=== PATIENT | female | born 1950 | race Caucasian/White ===

== ENCOUNTER 2023-02-25 18:51 | Inpatient (IN) ==
[2023-02-25] MEDS ORDERED: ACETAMINOPHEN 500 MG TAB PO STA (19:14)
[2023-02-25] MEDS ORDERED: SODIUM CHLORIDE 0.9% 500 ML IV SCH (19:15)
[2023-02-25 19:42] LABS: Basophils # (auto) 0.05 K/uL (0-0.2); Basophils % (auto) 0.8 %; Eosinophils # (auto) 0.14 K/uL (0-0.50); Eosinophils % (auto) 2.3 %; Hematocrit (blood only) 37.1 % (37.0-47.0); Hemoglobin 12.3 g/dl (12.0-16.0); Immature Granulocytes # (auto) 0.01 K/uL (0.01-0.20); Immature Granulocytes % (auto) 0.2 %; Lymphocytes # (auto) 2.15 K/uL (1.2-3.4); Lymphocytes % (auto) 35.1 %; Mean Corpuscular Hemoglobin 32.9 pg (25.0-34.0); Mean Corpuscular Hgb Conc 33.2 g/dL (32.0-36.0); Mean Corpuscular Volume 99.2 fL (80.0-100.0); Mean Platelet Volume 10.1 fL (9.4-12.4); Monocytes # (auto) 0.43 K/uL (0.11-0.59); Neutrophils # (auto) 3.34 K/uL (1.40-6.50); Neutrophils % (auto) 54.6 %; Platelet Count 223 K/uL (130-400); RDW Standard Deviation 47.6 fL (36.4-46.3); Red Blood Count 3.74 M/uL (4.20-5.40); White Blood Count 6.12 K/ul (4.8-10.8)
[2023-02-25 20:02] LABS: Alanine Aminotransferase 12 U/L (7-52); Albumin Globulin Ratio 1.3 (0.9-2); Alkaline Phosphatase 79 U/L (34-104); Anion Gap 6 (3-11); BUN Creatinine Ratio 21.8 (10-20); Bilirubin,Total 0.4 mg/dl (0.2-1.0); Blood Urea Nitrogen 19 mg/dl (6-23); Calcium 9.3 mg/dl (8.6-10.3); Carbon Dioxide 27 mmol/L (21-32); Chloride 106 mmol/L (98-107); Creatine Kinase 72 U/L (26-192); Creatinine Clr Calc Pharmacy 62.1 ml/min; Est GFR (African American) 77.7 ml/min; Glucose 92 mg/dl (70-99(Fasting)); Sodium 139 mmol/L (136-145)
[2023-02-25 20:08] LABS: Troponin I High Sensitivity 2.6 pg/ml (0-14)
--- NOTE | 2023-02-25 20:23 | Emergency Department Note ---
Impression & Plan Generalized weakness, Mild dehydration, Fall ED Provider Note INFORMANT: Patient ED PROVIDER(S): Perfecto Serna MD CHIEF COMPLAINT: Fall PLAN: Disposition: Admitted Condition: Good Outpatient prescription management: none Referral: None MEDICAL DECISION MAKING: patient presented because of weakness. She had a minor fall but did not suffer any trauma. Patient underwent a work-up. Her CBC and chemistry panel unremarkable. Mild dehydration on chemistry panel. Her troponin and CK were normal. The patient's chest x-ray was negative. CT scan of the head was negative. Twelve-lead ECG did have a lateral Q waves which was new however the last ECG was 13 years old. Patient did provide a urine sample and this was concerning for infection. Nursing did try to ambulate the patient but she was too weak to ambulate. She was given a dose of IV Rocephin. The patient was informed of the findings. She did note a recent visit to the [facility] and was told about a UTI. She was started on a antibiotic but does not know the medication. Given the level of weakness and inability to ambulate further management in the hospital be necessary. Consultation was made with Dr. Scott, [place] [facility] service. Patient was evaluated in the ER and admitted for further management. Discussed with chronic manager After review of the information above and other included data, I feel the patient requires admission. Triage Nursing notes reviewed and agree them. Vital Signs: reviewed and remarkable for no significant abnormalities Prior /Outside records reviewed: none Differential diagnosis: Infection, dehydration, metabolic abnormality, hypo/hyperglycemia, electrolyte disturbance, anemia, hypoxia, cardiac sources, intracerebral event, toxicologic, neurologic, as well as other pathologies. Diagnostics, as interpreted by me: ECG: Twelve-lead ECG was normal sinus rhythm at 69 bpm. Lateral Q waves present. Nonspecific ST. When compared to 12 April 2011 the lateral Q waves are new. Cardiac Monitoring: Cardiac monitoring ordered by me: The patient was placed on continuous cardiac monitoring and observed. It revealed a normal sinus rhythm at 66 beats per minute without ectopy or evidence of dysrhythmia. Medical decision rules: none Imaging studies: Head CT: A noncontrast CT scan of the head was performed and was negative for tumor, fracture, intracranial hemorrhage, or other acute pa thology. Chest x-ray. Findings: A chest x-ray was performed and revealed no pneumothorax, effusion, infiltrate, pulmonary edema, free air under the diaphragm, or wide mediastinum. Impression: No acute disease. HPI: The patient is a 72year old female who presents to the Emergency Room with complaints of a fall. This started just prior to arrival and is described as her legs giving out. Patient was standing in her kitchen and she felt generalized weakness. She had some pins and needle sensation in her hands and feet this been going on for about a week. Patient notes that her legs gave out and she slid down but does not feel like she hurt herself. EMS arrived and patient was able to ambulate with EMS at her side about 20 feet. The patient also notes the following associated symptoms, chronic knee and back pain. Patient has a history of back surgery. Denies any new symptoms there. Does not feel she hurt her back from this event. The patient has been given no medication prehospital relieving factors. Current pain is rated as 4/10. Pt denies LOC, headache, fevers, chills, diaphoresis, visual changes, neck pain, chest pain, breathing difficulties, nausea, vomiting, abdominal pain, melena, hematochezia, urinary symptoms, lymphadenopathy, rash, or other complaints. PAST MEDICAL HISTORY: See Below, arthritis, hypertension PAST SURGICAL HISTORY: See Below, left knee replacement SOCIAL HISTORY: See Below, lives with family HOME MEDICATIONS: See Below ALLERGIES: See Below VITALS: See Below PHYSICAL EXAMINATION: GENERAL: Awake, alert, nontoxic-appearing, in no distress HENT: Normocephalic, atraumatic. Oropharynx unremarkable. EYES: Normal conjunctiva. Sclera non-icteric. PERRLA. EOMI. NECK: Inspection normal. Non-tender. Supple. No nuchal rigidity. FROM. No masses. RESPIRATORY: Clear to auscultation. No wheezes. No rales. Normal respiratory effort. CARDIAC: Normal rate. Normal rhythm. No murmurs. No rubs. Extremities warm and well perfused. Pulses equal. No JVD. GI: Soft, non-distended. No tenderness to palpation. No rebound or guarding. No masses. RECTAL: Deferred. MUSCULOSKELETAL: Atraumatic. Significant arthritic changes noted in the hands and feet bilaterally. Chest examination reveals no tenderness. The back is symmetrical on inspection without obvious abnormality. There is no CVA tenderness to palpation. Mild low lumbar tenderness to palpation which the patient states is chronic. No joint edema. LOWER EXTREMITIES: Calves are equal size bilaterally and non-tender. No edema. No discoloration. NEURO: Normal sensorium. No sensory or motor deficits noted except for subjective tingling in the hands and feet. Speech normal. Cranial nerves II through XII intact. No drift. SKIN: No rash or jaundice noted. Past Med/Surg History Social History Smoking Status: Never smoker Preferred Language: [place] Feels Safe at Home: Yes Allergies Allergies Allergy/AdvReac Type Severity Reaction Status Date / Time No Known Allergies Allergy Verified 02/25/23 20:12 Home Meds Home Medications Medication Instructions Recorded Confirmed aspirin 81 mg tablet,delayed 81 mg PO DAILY 02/25/23 02/25/23 release atorvastatin 20 mg tablet 20 mg PO DAILY 02/25/23 02/25/23 bupropion HCl 150 mg 24 hr tablet, 150 mg PO QAM 02/25/23 02/25/23 extended release cyanocobalamin (vitamin B-12) 1,000 mcg IM MONTHLY 02/25/23 02/25/23 1,000 mcg/mL injection solution levothyroxine 112 mcg tablet 112 mcg PO DAILYBB 02/25/23 02/25/23 lisinopril 20 mg tablet 20 mg PO QAM 02/25/23 02/25/23 multivitamin 1 tab PO DAILY 02/25/23 02/25/23 naproxen 500 mg tablet 500 mg PO BIDM 02/25/23 02/25/23 omeprazole 20 mg capsule,delayed 20 mg PO DAILYBB 02/25/23 02/25/23 release pregabalin 25 mg capsule 25 mg PO TID 02/25/23 02/25/23 sertraline 100 mg tablet 200 mg PO QAM 02/25/23 02/25/23 Results & Data (ED) Vital Signs Vital Signs - 24 hr 02/25/23 18:59 02/25/23 19:25 02/25/23 19:35 Temperature 36.5 C Temperature Source Oral Pulse Rate 76 69 66 Respiratory Rate 22 Respiratory Effort / Characteristics Non-Labored Respiratory Depth Normal Blood Pressure 147/86 H Blood Pressure Mean 106 Pulse Oximetry 98 96 Oxygen Delivery Method Room Air Room Air Sepsis Recent Fever Within 48 Hours No Sepsis New/Unexplained Change in Mental Status No Sepsis Action Taken by Nursing No Action Required Laboratory Data 02/25/23 19:27 02/25/23 19:27 Lab Results 02/25/23 02/25/23 02/25/23 Range/Units 19:27 19: 19:27 WBC 6.12 (4.8-10.8) K/ul RBC 3.74 L (4.20-5.40) M/uL Hgb 12.3 (12.0-16.0) g/dl Hct 37.1 (37.0-47.0) % MCV 99.2 (80.0-100.0) fL MCH 32.9 (25.0-34.0) pg MCHC 33.2 (32.0-36.0) g/dL RDW Std Deviation 47.6 H (36.4-46.3) fL RDW Coeff of Yoni 13.0 (11.5-14.5) % Plt Count 223 (130-400) K/uL MPV 10.1 (9.4-12.4) fL Immature Gran % (Auto) 0.2 % Neut % (Auto) 54.6 % Lymph % (Auto) 35.1 % [place] % (Auto) 7.0 % Eos % (Auto) 2.3 % Baso % (Auto) 0.8 % Neut # (Auto) 3.34 (1.40-6.50) K/uL Lymph # (Auto) 2.15 (1.2-3.4) K/uL [place] # (Auto) 0.43 (0.11-0.59) K/uL Eos # (Auto) 0.14 (0-0.50) K/uL Baso # (Auto) 0.05 (0-0.2) K/uL Immature Gran # (Auto) 0.01 (0.01-0.20) K/uL Sodium 139 (136-145) mmol/L Potassium TNP Chloride 106 (98-107) mmol/L Carbon Dioxide 27 (21-32) mmol/L Anion Gap 6 (3-11) BUN 19 (6-23) mg/dl Creatinine 0.87 (0.6-1.2) mg/dl Est Cr Clr Drug Dosing 62.1 ml/min Est GFR ( Amer) 77.7 ml/min Est GFR (Non-Af Amer) 67.0 ml/min BUN/Creatinine Ratio 21.8 H (10-20) Glucose 92 (70-99(Fasting)) mg/dl Calcium 9.3 (8.6-10.3) mg/dl Magnesium 2.0 (1.7-2.4) mg/dl Total Bilirubin 0.4 (0.2-1.0) mg/dl AST TNP ALT 12 (7-52) U/L Alkaline Phosphatase 79 (34-104) U/L Total Creatine Kinase 72 (26-192) U/L Troponin I High Sens 2.6 (0-14) pg/ml Total Protein 7.0 (6.0-8.3) gm/dl Albumin 4.0 (3.4-5.0) gm/dl Globulin 3.0 (2.5-4.0) gm/dl Albumin/Globulin Ratio 1.3 (0.9-2) TSH 3.108 (0.300-4.500) uIu/ml Urine Color Urine Appearance (Clear) Urine pH (4.5-7.5) Ur Specific [place] (1.000-1.030) Urine Protein (Negative) Urine Glucose (UA) (Negative) Urine Ketones (Negative) Urine Blood (Negative) Urine Nitrite (Negative) Urine Bilirubin (Negative) Urine Urobilinogen (Negative) Ur Leukocyte Esterase (Negative) Urine WBC (Auto) (0-5) /hpf Urine RBC (Auto) (0-4) /hpf U Hyaline Cast (Auto) (0-5) /lpf U Epithel Cells (Auto) (0-5) /lpf Urine Bacteria (Auto) (Negative) 02/25/23 02/25/23 Range/Units 20:07 Unknown WBC (4.8-10.8) K/ul RBC (4.20-5.40) M/uL Hgb (12.0-16.0) g/dl Hct (37.0-47.0) % MCV (80.0-100.0) fL MCH (25.0-34.0) pg MCHC (32.0-36.0) g/dL RDW Std Deviation (36.4-46.3) fL RDW Coeff of Yoni (11.5-14.5) % Plt Count (130-400) K/uL MPV (9.4-12.4) fL Immature Gran % (Auto) % Neut % (Auto) % Lymph % (Auto) % [place] % (Auto) % Eos % (Auto) % Baso % (Auto) % Neut # (Auto) (1.40-6.50) K/uL Lymph # (Auto) (1.2-3.4) K/uL [place] # (Auto) (0.11-0.59) K/uL Eos # (Auto) (0-0.50) K/uL Baso # (Auto) (0-0.2) K/uL Immature Gran # (Auto) (0.01-0.20) K/uL Sodium (136-145) mmol/L Potassium 3.9 Chloride (98-107) mmol/L Carbon Dioxide (21-32) mmol/L Anion Gap (3-11) BUN (6-23) mg/dl Creatinine (0.6-1.2) mg/dl Est Cr Clr Drug Dosing ml/min Est GFR ( Amer) ml/min Est GFR (Non-Af Amer) ml/min BUN/Creatinine Ratio (10-20) Glucose (70-99(Fasting)) mg/dl Calcium (8.6-10.3) mg/dl Magnesium (1.7-2.4) mg/dl Total Bilirubin (0.2-1.0) mg/dl AST 17 ALT (7-52) U/L Alkaline Phosphatase (34-104) U/L Total Creatine Kinase (26-192) U/L Troponin I High Sens (0-14) pg/ml Total Protein (6.0-8.3) gm/dl Albumin (3.4-5.0) gm/dl Globulin (2.5-4.0) gm/dl Albumin/Globulin Ratio (0.9-2) TSH (0.300-4.500) uIu/ml Urine Color Yellow Urine Appearance Cloudy A (Clear) Urine pH 6.0 (4.5-7.5) Ur Specific [place] 1.012 (1.000-1.030) Urine Protein Negative (Negative) Urine Glucose (UA) Negative (Negative) Urine Ketones Negative (Negative) Urine Blood 1+ H (Negative) Urine Nitrite Negative (Negative) Urine Bilirubin Negative (Negative) Urine Urobilinogen Negative (Negative) Ur Leukocyte Esterase 3+ H (Negative) Urine WBC (Auto) >30 H (0-5) /hpf Urine RBC (Auto) 0-4 (0-4) /hpf U Hyaline Cast (Auto) 1-5 (0-5) /lpf U Epithel Cells (Auto) 20-30 H (0-5) /lpf Urine Bacteria (Auto) 4+ H (Negative) Administered Medications Ceftriaxone Sodium (Rocephin) 2,000 mg in 70 mls @ 140 mls/hr IV NOW STA Stop: 02/25/23 21:49 Last Admin: 02/25/23 21:33 Dose: 140 mls/hr Documented By: NRB Discontinued Medications Acetaminophen (Acetaminophen 500 Mg Tab) 1,000 mg PO NOW STA Stop: 02/25/23 19:15 Last Admin: 02/25/23 19:42 Dose: 1,000 mg Documented By: NRB Sodium Chloride (Nss) 500 mls @ 999 mls/hr IV .Q31M GABRIEL Stop: 02/25/23 19:45 Last Infusion: 02/25/23 20:14 Dose: 0 mls/hr Documented By: Admin: 02/25/23 19:43 Dose: 999 mls/hr Documented By: NRB Imaging Data Radiologist's Impression: Head CT 02/25/23 19:14 Exam(s): CT HEAD Without Contrast EXAM: CT Head Without Intravenous Contrast CLINICAL HISTORY: Reason for exam: fall, generalized weakness. TECHNIQUE: Axial computed tomography images of the head/brain without intravenous contrast. CTDI is 37.22 mGy and DLP is 702.46 mGy-cm. Automated exposure control was utilized for the study. A dose lowering technique was utilized adhering to the principles of ALARA. COMPARISON: No relevant prior studies available. FINDINGS: No acute intracranial hemorrhage. No midline shift or mass effect. The territorial dunn-white matter differentiation is maintained throughout. Age-related cerebral volume loss. Periventricular and subcortical white matter hypoattenuation, consistent with chronic microangiopathy. The visualized orbits appear grossly unremarkable. The calvarium is intact. The visualized paranasal sinuses and mastoid air cells are grossly clear. IMPRESSION: No acute intracranial hemorrhage, midline shift, or mass effect. Electronically signed by: Jose Hogue MD 02/25/23 20:33 PM Discharge Plan Visit Data Chief Complaint: Fall Stated Complaint: "SLID" FROM STANDING, NO COMPLAINTS/PAIN, EVAL ED Provider: Perfecto Serna Discharge Problem: Generalized weakness, Mild dehydration, Fall Forms Stand Alone Forms: My [facility] Prescriptions Prescriptions: No Action multivitamin Tablet 1 tab PO DAILY atorvastatin 20 mg tablet 20 mg PO DAILY lisinopril 20 mg tablet 20 mg PO QAM sertraline 100 mg tablet 200 mg PO QAM aspirin 81 mg Tablet,Delayed Release (Dr/Ec) 81 mg PO DAILY cyanocobalamin (vitamin B-12) [Vitamin B-12] 1,000 mcg/mL Solution 1,000 mcg IM MONTHLY omeprazole 20 mg capsule,delayed release(DR/EC) 20 mg PO DAILYBB naproxen 500 mg tablet 500 mg PO BIDM levothyroxine 112 mcg tablet 112 mcg PO DAILYBB bupropion HCl 150 mg tablet extended release 24 hr 150 mg PO QAM pregabalin 25 mg capsule 25 mg PO TID Referrals Referrals: PCP,NO [Primary Care Provider] -
--- NOTE | 2023-02-25 20:34 | CT Scan Report ---
Exam(s): CT HEAD Without Contrast EXAM: CT Head Without Intravenous Contrast CLINICAL HISTORY: Reason for exam: fall, generalized weakness. TECHNIQUE: Axial computed tomography images of the head/brain without intravenous contrast. CTDI is 37.22 mGy and DLP is 702.46 mGy-cm. Automated exposure control was utilized for the study. A dose lowering technique was utilized adhering to the principles of ALARA. COMPARISON: No relevant prior studies available. FINDINGS: No acute intracranial hemorrhage. No midline shift or mass effect. The territorial dunn-white matter differentiation is maintained throughout. Age-related cerebral volume loss. Periventricular and subcortical white matter hypoattenuation, consistent with chronic microangiopathy. The visualized orbits appear grossly unremarkable. The calvarium is intact. The visualized paranasal sinuses and mastoid air cells are grossly clear. IMPRESSION: No acute intracranial hemorrhage, midline shift, or mass effect. Electronically signed by: Jose Hogue MD 02/25/23 20:33 PM
[2023-02-25 20:35] LABS: Potassium 3.9 mmol/L (3.5-5.1)
[2023-02-25 21:18] LABS: Appearance Urine Cloudy (Clear); Bacteria Urine Automated 4+ (Negative); Bilirubin Urine Negative (Negative); Blood Urine 1+ (Negative); Color Urine Yellow; Epithelial Cell Urine Auto 20-30 /lpf (0-5); Glucose Urine UA Negative (Negative); Ketones Urine Negative (Negative); Leukocyte Esterase Urine 3+ (Negative); Nitrite Urine Negative (Negative); Protein Urine Negative (Negative); RBC Urine Automated 0-4 /hpf (0-4); Specific Gravity Urine 1.012 (1.000-1.030); Urobilinogen Urine Negative (Negative); WBC Urine Automated >30 /hpf (0-5)
[2023-02-25] MEDS ORDERED: cefTRIAXone SODIUM 2,000 MG/70 ML BAG IV STA (21:20)
--- NOTE | 2023-02-25 23:45 | History and Physical Report ---
DATE OF ADMISSION: 02/25/2023. CHIEF COMPLAINT: Fall. HISTORY OF PRESENT ILLNESS: This is a 72-year-old female with past medical history significant for hypothyroidism, hyperlipidemia, hypertension, morbid obesity, GERD, vitamin B12 deficiency, generalized osteoarthritis, arthritis of right knee, osteoporosis, depression, lives at home with her granddaughter, ambulates with a walker, fell at home, she was in the kitchen. She has arthritis of the right knee, she says she is supposed to get knee surgery, but it has not been done yet, it gave way and she fell as the legs slid, did not hit the head. No loss of consciousness. She could not get up. Called EMS and was brought in here, and found to have UTI. Denies any headache, no dizziness, no blurred visions, no earache, no runny nose, no sore throat, no cough, no difficulty swallowing. No chest pain, no shortness of breath, no nausea, no vomiting, no abdominal pain. Normal bowel and bladder movements. Denies any blood in the stool or black stools. She says for the last two to three weeks, she developed some swelling in the lower extremities. Denies any tenderness of the lower extremity. ALLERGIES: No known drug allergies. PAST MEDICAL HISTORY: As mentioned above. PAST SURGICAL HISTORY: Colonoscopy, dental surgery, injection of the lumbosacral spine, lumbosacral spine fusion surgery, tonsillectomy, adenoidectomy, sacroiliac joint injection, total hysterectomy. MEDICATIONS: The patient is on aspirin 81 mg p.o. daily, atorvastatin 20 mg p.o. daily, bupropion 150 mg p.o. daily, vitamin B12 1000 mcg IM monthly, levothyroxine 112 mcg p.o. daily, lisinopril 20 mg p.o. daily, multivitamin 1 tablet p.o. daily, naproxen 500 mg p.o. b.i.d., omeprazole 20 mg p.o. daily, pregabalin 25 mg p.o. t.i.d., sertraline 200 mg p.o. a.m. FAMILY HISTORY: Significant for father had arthritis; mother has arthritis; two brothers with diabetes, obesity; sister has obesity. SOCIAL HISTORY: . Currently lives with granddaughter. No smoking, no alcohol, no drug use. REVIEW OF SYSTEMS: As per HPI. Rest of the review of systems is negative. PHYSICAL EXAMINATION: GENERAL: The patient is morbidly obese, not in acute distress. VITAL SIGNS: Temperature 36.5, pulse 73, respiratory rate 17, blood pressure 152/77, oxygen 94% on room air. HEENT: Pupils equal, round, and reactive to light. Oral mucosa moist. NECK: No JVD, no neck masses. CARDIOVASCULAR: S1 and S2 heard. Regular rate and rhythm. No murmur, no gallop. RESPIRATORY SYSTEM: Normal AP diameter. No accessory muscle use. No wheezing or crackles. ABDOMEN: Soft, bowel sounds present, nontender, no distention. CENTRAL NERVOUS SYSTEM: Alert and oriented. Speech is clear. No facial droop. Obeys commands. Insight is okay. Moves extremities. EXTREMITIES: Lower extremity edema present, no erythema seen. No calf tenderness seen. LABORATORY DATA: WBC 6.1, hemoglobin 12.3, hematocrit 37.1, platelets 223. Sodium 139, potassium 3.9, chloride 106, bicarb 27, BUN 19, creatinine 0.8, serum glucose 92, calcium 9.3, magnesium 2, total bilirubin 0.4, AST 17, ALT 12, alkaline phosphatase 79, total creatine kinase 72. Troponin I high sensitivity 2.6. TSH 3.1. Urinalysis, +2 leukocyte esterase, +4 bacteria. SARS-CoV-2 rapid test negative. IMAGING DATA: CT of the head without contrast, no acute findings. Chest x-ray, no acute findings. EKG: Normal sinus rhythm, rate of 69, nonspecific T-wave abnormalities. ASSESSMENT AND PLAN: This 72-year-old female presents with fall. 1. Fall: It looks like she has arthritis of right knee and legs gave away. Urinary tract infection could be contributing. PT, OT, monitor in the hospital. 2. Urinary tract infection: Started on Rocephin. Follow the cultures. 3. Lower extremity edema, she says for the last 2 to 3 weeks: No erythema or tenderness. Will do LE Doppler and also get echocardiogram. 4. History of hypothyroidism: Continue Synthroid. 5. History of vitamin B12 deficiency: Continue B12 shots weekly. Will check the vitamin B12 levels. 6. History of hypertension: Continue her lisinopril. 7. History of hyperlipidemia: Continue statin. 8. History of depression: Continue bupropion. 9. Gastroesophageal reflux disease: On omeprazole. 10. Morbid obesity: Counseling. 11. Deep venous thrombosis prophylaxis: Lovenox. DISPOSITION: Closely monitor in the med tele. PT/OT prior to discharge. Social service to help with discharge planning. Level 1 full code. Job ID: [id number] [facility]
[2023-02-26] MEDS ORDERED: POLYETHYLENE (MIRALAX) 17 GM PACK PO PRN (01:02)
[2023-02-26] MEDS ORDERED: NITROGLYCERIN SL 0.4 MG/TAB TAB SL PRN (01:02)
[2023-02-26] MEDS: oxyCODONE HCL IR 5 MG TAB (IMMEDIATE RELEASE) PO PRN ×3 (01:50→14:55)
[2023-02-26] MEDS: ACETAMINOPHEN 325 MG TAB PO PRN ×2 (04:55→20:14)
[2023-02-26] MEDS: LEVOTHYROXINE SODIUM 112 MCG TABLET PO SCH (05:58)
[2023-02-26] MEDS: PANTOprazole 40 MG TAB PO SCH (05:58)
[2023-02-26 06:17] LABS: Basophils # (auto) 0.04 K/uL (0-0.2); Basophils % (auto) 0.7 %; Eosinophils % (auto) 1.7 %; Hematocrit (blood only) 37.9 % (37.0-47.0); Hemoglobin 12.4 g/dl (12.0-16.0); Immature Granulocytes # (auto) 0.02 K/uL (0.01-0.20); Immature Granulocytes % (auto) 0.3 %; Lymphocytes # (auto) 1.64 K/uL (1.2-3.4); Lymphocytes % (auto) 28.6 %; Mean Corpuscular Hemoglobin 32.5 pg (25.0-34.0); Mean Corpuscular Hgb Conc 32.7 g/dL (32.0-36.0); Mean Corpuscular Volume 99.2 fL (80.0-100.0); Mean Platelet Volume 10.2 fL (9.4-12.4); Monocytes # (auto) 0.44 K/uL (0.11-0.59); Monocytes % (auto) 7.7 %; Platelet Count 219 K/uL (130-400); RDW Standard Deviation 46.1 fL (36.4-46.3); Red Blood Count 3.82 M/uL (4.20-5.40); White Blood Count 5.74 K/ul (4.8-10.8)
[2023-02-26 06:40] LABS: Calcium 9.4 mg/dl (8.6-10.3); Magnesium 1.8 mg/dl (1.7-2.4); Potassium 4.3 mmol/L (3.5-5.1)
[2023-02-26 06:46] LABS: BUN Creatinine Ratio 23.5 (10-20); Creatinine Clr Calc Pharmacy 78.3 ml/min
--- NOTE | 2023-02-26 07:26 | XRay Report ---
XR chest 1V portable HISTORY: weakness COMPARISON: None. FINDINGS: There are low lung volumes with mild elevation the right hemidiaphragm. The cardiac silhoue tte is mildly enlarged. There is a moderate hiatus hernia. The lungs are clear. No pleural effusions. No pneumothorax. No acute fractures identified. IMPRESSION: No acute process. ACT 112: Negative or not required by law. Electronically signed by: Iftikhar Mcneill M.D. 02/26/2023 7:25 AM
--- NOTE | 2023-02-26 07:26 | Ultrasound Report ---
BILATERAL LOWER EXTREMITY VENOUS DOPPLER HISTORY: lower extremity edema. dvt? COMPARISON STUDY: None. FINDINGS: There is normal compressibility, flow, and augmentation within the bilateral lower extremit y deep venous systems. There is a 4.4 x 3.3 x 1.5 cm fluid collection within the left medial calf. IMPRESSION: No DVT within the right or left lower extremity. 4.4 x 3.2 x 1.5 cm fluid collection within the left medial calf. This could represent an old hematoma. ACT 112: Negative or not required by law. Electronically signed by: Iftikhar Mcneill M.D. 02/26/2023 7:24 AM
[2023-02-26] MEDS: PREGABALIN 25 MG CAP PO SCH ×3 (08:37→20:14)
[2023-02-26] MEDS: ENOXAPARIN INJ 40 MG/0.4 ML SYR SQ SCH ×2 (08:41→20:14)
[2023-02-26] MEDS: ATORVASTATIN 20 MG TAB PO SCH (08:42)
[2023-02-26] MEDS: buPROPion XL 150 MG TABCR PO SCH (08:42)
[2023-02-26] MEDS: SERTRALINE HCL 100 MG TABLET PO SCH (08:42)
[2023-02-26] MEDS: MULTIVITAMIN TAB PO SCH (08:42)
[2023-02-26] MEDS: lisinopril 20 MG TAB PO SCH (08:42)
[2023-02-26] MEDS: ASPIRIN 81 MG ECTAB PO SCH (08:42)
--- NOTE | 2023-02-26 10:36 | Electrocardiogram Report ---
Test Reason : Blood Pressure : / mmHG Vent. Rate : 069 BPM Atrial Rate : 069 BPM P-R Int : 184 ms QRS Dur : 094 ms QT Int : 400 ms P-R-T Axes : 043 -28 025 degrees QTc Int : 428 ms Normal sinus rhythm Possible dangelo Lateral infarct , age undetermined vs lead placement Nonspecific T wave abnormality Abnormal ECG When compared with ECG of 12-APR-2011 11:16, Borderline criteria for anterolateral are now Present Nonspecific T wave abnormality now evident in Lateral leads Confirmed by Kyaw Griffith ([id number]) on 02/26/2023 10:36:19 AM Referred By: REFERRED SELF Confirmed By:Kyaw Griffith
--- NOTE | 2023-02-26 13:40 | Hospitalist Progress Note ---
Date of Service February 26, 2023 Assessment & Plan (1) Generalized weakness: Plan: PT/OT eval pending (2) Fall: Plan: Related to her OA (3) UTI (urinary tract infection): Plan: -continue ceftriaxone Plan Chronic issues: HTN- Lisinopril 20mg Depression- continue bupropion, sertraline Hypothyroidism- continue levothyroxine 112mcg Vitamin B12 deficiency- gets monthly injections Morbid Obesity- BMI 44, ongoing weight loss counseling OA- reports she needs a right knee replacement. Would benefit from PT, weight loss. Continue pregabalin DVT ppx -SQ lovenox Admission and Anticipated Discharge Date Admission Date: February 25, 2023 Subjective Feels weak which isn't new. No fevers/chills No nausea/vomiting No diarrhea Review of Systems Review of Systems: as above in HPI, remaining ROS otherwise negative Physical Exam Physical Exam: Morbidly obese, non toxic, pleasant Respiratory: Breathing comfortably on room air, no accessory muscle use Cardiovascular: regular rate and rhythm, no murmurs/rubs Gastrointestinal (Abdomen): soft, non tender, obese Musculoskeletal: no edema, no cyanosis or clubbing Neurologic: awake, alert, spontaneously moving extremities Results & Data Results & Data Vital Signs (Past 12 Hours) Vital Signs Temp Pulse Pulse Resp BP Pulse Ox O2 Del Method 02/26/23 11:07 36.9 C 81 20 123/62 93 Room Air 02/26/23 07:00 68 02/26/23 07:46 36.7 C 73 20 140/78 95 Room Air 02/26/23 04:21 36.6 C 71 18 120/71 96 Room Air 02/26/23 01:42 68
[2023-02-26] MEDS ORDERED: cefTRIAXone SODIUM 2,000 MG in DEXTROSE 5% 50 ML IV SCH (20:00)
[2023-02-27] MEDS: oxyCODONE HCL IR 5 MG TAB (IMMEDIATE RELEASE) PO PRN ×3 (03:13→17:09)
[2023-02-27] MEDS: PANTOprazole 40 MG TAB PO SCH (05:31)
[2023-02-27] MEDS: ACETAMINOPHEN 325 MG TAB PO PRN ×2 (05:31→12:52)
[2023-02-27] MEDS: LEVOTHYROXINE SODIUM 112 MCG TABLET PO SCH (05:31)
[2023-02-27 06:35] LABS: Hematocrit (blood only) 36.4 % (37.0-47.0); Hemoglobin 11.9 g/dl (12.0-16.0); Mean Corpuscular Hemoglobin 32.2 pg (25.0-34.0); Mean Corpuscular Hgb Conc 32.7 g/dL (32.0-36.0); Mean Corpuscular Volume 98.4 fL (80.0-100.0); Mean Platelet Volume 10.3 fL (9.4-12.4); Platelet Count 228 K/uL (130-400); RDW Standard Deviation 47.2 fL (36.4-46.3); White Blood Count 4.82 K/ul (4.8-10.8)
[2023-02-27 06:39] LABS: BUN Creatinine Ratio 25.3 (10-20); Calcium 9.3 mg/dl (8.6-10.3); Creatinine Clr Calc Pharmacy 63.8 ml/min; Est GFR (African American) 82.2 ml/min; Est GFR (Non-African American) 70.9 ml/min; Potassium 4.4 mmol/L (3.5-5.1)
[2023-02-27] MEDS: buPROPion XL 150 MG TABCR PO SCH (08:32)
[2023-02-27] MEDS: ATORVASTATIN 20 MG TAB PO SCH (08:32)
[2023-02-27] MEDS: lisinopril 20 MG TAB PO SCH (08:32)
[2023-02-27] MEDS: ASPIRIN 81 MG ECTAB PO SCH (08:33)
[2023-02-27] MEDS: MULTIVITAMIN TAB PO SCH (08:33)
[2023-02-27] MEDS: ENOXAPARIN INJ 40 MG/0.4 ML SYR SQ SCH (08:33)
[2023-02-27] MEDS: PREGABALIN 25 MG CAP PO SCH ×2 (08:36→12:52)
[2023-02-27] MEDS: SERTRALINE HCL 100 MG TABLET PO SCH (09:24)
[2023-02-27] MEDS ORDERED: cephALEXin 250 MG CAP PO ONE (17:24)
--- NOTE | 2023-02-28 11:16 | Discharge Summary ---
Date of Service February 27, 2023 Admission HPI Per Admitting Provider HISTORY OF PRESENT ILLNESS: This is a 72-year-old female with past medical history significant for hypothyroidism, hyperlipidemia, hypertension, morbid obesity, GERD, vitamin B12 deficiency, generalized osteoarthritis, arthritis of right knee, osteoporosis, depression, lives at home with her granddaughter, ambulates with a walker, fell at home, she was in the kitchen. She has arthritis of the right knee, she says she is supposed to get knee surgery, but it has not been done yet, it gave way and she fell as the legs slid, did not hit the head. No loss of consciousness. She could not get up. Called EMS and was brought in here, and found to have UTI. Denies any headache, no dizziness, no blurred visions, no earache, no runny nose, no sore throat, no cough, no difficulty swallowing. No chest pain, no shortness of breath, no nausea, no vomiting, no abdominal pain. Normal bowel and bladder movements. Denies any blood in the stool or black stools. She says for the last two to three weeks, she developed some swelling in the lower extremities. Denies any tenderness of the lower extremity. Principal Diagnosis E coli UTI Mechanical Fall Osteoarthritis Discharge Exam Patient was seen and examined on day of discharge. She was sitting in chair at bedside. She had walked with PT earlier in the day, ambulated with her walker. Overall feels well. On exam, appears chronically ill and older than stated age but in no acute distress. Morbidly obese. Breathing comfortably on room air. Heart sounds are regular rate and rhythm. Discharge Data Allergies Allergy/AdvReac Type Severity Reaction Status Date / Time No Known Allergies Allergy Verified 02/27/23 19:52 Consultations 02/25/23 21:44 ED Decision to Admit Stat Ordered Studies 02/25/23 19:14 CT head/brain wo con Stat 02/26/23 01:02 US venous doppler LE BI Routine Hospital Course (1) Generalized weakness: PT/OT eval pending (2) Fall: Related to her OA (3) UTI (urinary tract infection): -continue ceftriaxone Plan Ms Becca Moreno is a 72 year old female with history of morbid obesity (BMI 43), history of osteoarthritis of bilateral knees, hypothyroidism, vitamin B12 deficiency and depression was admitted 02/25 after a mechanical fall. She reports that at baseline she has osteoarthritis of her knees and that she needs a right knee replacement but she is still able to ambulate with a walker. However, for the past several days she has felt very weak and on the day of admission "my right knee gave out on me". Here, she was found to have a christopher sensitive E coli UTI and was placed on ceftriaxone and IV fluids. At discharge, her antibiotics were switched to oral keflex to finish a total 5 day course. With treatment, she felt better. She was evaluated by physical therapy and felt to be near her baseline and recommended that she can return home with home care services. It was late in the afternoon (5pm) on a holiday weekend and home care services was not yet set up. She was offered to remain in the hospital until it can be set up the following day versus returning home this evening and it can be arranged after she leaves. She felt comfortable returning home with the assistance of her family until home care can be set up. Home Health Attestation I certify that this patient is under my care and that I, or a physicians assistant professor of mathematics working with me, had a face to-face encounter that meets the home health [id number] encounter requirements with this patient. The encounter with the patient was in whole, or in part, for the following medical condition, which is the primary reason for home health care (list medical condition): I certify that, based on my findings, the following services are medically necessary home health services: My clinical findings support the need for the above services because: Further, I certify that my clinical findings support that this patient is homebound (i.e. absences from home require considerable and taxing effort and are for medical reasons or buddhism services or infrequently or of short duration when for other reasons) because: Certification for Home Health Services: Based on the above findings, I certify that this patient is confined to the home and needs intermittent fdc care, physical therapy and/or speech therapy or continues to need occupational therapy. The patient is under my care, and I have initiated the establishment of the plan of care. This patient will be followed by a physician who will periodically review the plan of care. Total Time Total Time Spent Total Time Spent (In Minutes): 35 Discharge Plan Discharge Items Patient Disposition: Home - Home Health Services Reason For Visit: FALL Discharge Diagnosis: E coli UTI Fall Condition on Discharge: Fair Activity: Resume your previous activity Non-emergency contact: Primary Care Provider and Surgeon Call non-emergency contact if: you have any medication questions Follow-up/Referrals: PCP,NO [Primary Care Provider] - Diet: Heart Healthy Addtl Attending Provider Instructions: You were admitted to the hospital for weakness found to have a urinary tract infection. You were on ceftriaxone in the hospital and at discharge will be on keflex for another 5 days You report right knee "gives out" because of severe arthritis. You should follow up with your doctor to discuss knee replacement You were noted to have fluid collection in your left calf which may be due to an old injury. Please follow up with your family doctor to monitor. You do NOT have blood clot in your legs medication manager will contact you after discharge to arrange for home care services. You were discharged over a Holiday weekend and services are not immediately available. For arthritis, it is recommended you use acetaminophen (tylenol) as needed. Your naproxen was discontinued Pending Studies at Discharge: No Stand-Alone Forms: My [facility], Smoking Cessation Medications and DC Order Prescriptions: New cephalexin 750 mg capsule 750 mg PO TID 3 Days Qty: 9 0RF Rx Instructions: STARTED 02/27/23 FOR 3 DAYS. Continued multivitamin Tablet 1 tab PO DAILY atorvastatin 20 mg tablet 20 mg PO DAILY lisinopril 20 mg tablet 20 mg PO QAM sertraline 100 mg tablet 200 mg PO QAM aspirin 81 mg Tablet,Delayed Release (Dr/Ec) 81 mg PO DAILY cyanocobalamin (vitamin B-12) 1,000 mcg/mL Solution 1,000 mcg IM MONTHLY omeprazole 20 mg capsule,delayed release(DR/EC) 20 mg PO DAILYBB levothyroxine 112 mcg tablet 112 mcg PO DAILYBB bupropion HCl 150 mg tablet extended release 24 hr 150 mg PO QAM pregabalin 25 mg capsule 25 mg PO TID Discontinued naproxen 500 mg tablet 500 mg PO BIDM Discharge Orders: Discharge Order (Routine); Ordered 02/27/23 Ordered By: Radha Barnes Admission Data Admit Date/Time: 02/25/23 22:59 Attending Provider: Radha Barnes Admit Provider: Ricci Scott Primary Care Provider: PCP,NO Other Providers: Ricci Scott Other Interventions: Discharge Summary Assessment (RN) Last Done: 02/27/23 16:46
== END 2023-02-27 18:49 | disposition home health service (06) | DRG 690 ==
LOC: ED 18:51 → 2N 22:59
DX: M17.11 Unilateral primary osteoarthritis, right knee; E66.01 Morbid (severe) obesity due to excess calories; I10 Essential (primary) hypertension; Z79.82 Long term (current) use of aspirin; E78.5 Hyperlipidemia, unspecified; E03.9 Hypothyroidism, unspecified; Z96.652 Presence of left artificial knee joint; W18.39XA Other fall on same level, initial encounter; K21.9 Gastro-esophageal reflux disease without esophagitis; Y92.89 Other specified places as the place of occurrence of the external cause; Z68.41 Body mass index [BMI] 40.0-44.9, adult; E86.0 Dehydration; M81.0 Age-related osteoporosis without current pathological fracture; N39.0 Urinary tract infection, site not specified

== ENCOUNTER 2023-02-27 19:18 | Inpatient (IN) ==
--- NOTE | 2023-02-27 20:16 | Emergency Department Note ---
History of Present Illness General Chief complaint: Illness Time Seen by Provider: 02/27/23 19:33 History of Present Illness Provider complaint: Weakness 72-year-old female presents emergency department for weakness. Patient states she was on her way out of the hospital after being discharged with try to get into her vehicle when she felt very very weak. She states she felt like her k nees were about to give out. She denies falling. She denies any new pain. Home Medications Medication Instructions Recorded Confirmed Type aspirin 81 mg tablet,delayed 81 mg PO DAILY 02/25/23 02/27/23 History release atorvastatin 20 mg tablet 20 mg PO DAILY 02/25/23 02/27/23 History bupropion HCl 150 mg 24 hr tablet, 150 mg PO QAM 02/25/23 02/27/23 History extended release cyanocobalamin (vitamin B-12) 1,000 mcg IM MONTHLY 02/25/23 02/27/23 History 1,000 mcg/mL injection solution levothyroxine 112 mcg tablet 112 mcg PO DAILYBB 02/25/23 02/27/23 History lisinopril 20 mg tablet 20 mg PO QAM 02/25/23 02/27/23 History multivitamin 1 tab PO DAILY 02/25/23 02/27/23 History omeprazole 20 mg capsule,delayed 20 mg PO DAILYBB 02/25/23 02/27/23 History release pregabalin 25 mg capsule 25 mg PO TID 02/25/23 02/27/23 History sertraline 100 mg tablet 200 mg PO QAM 02/25/23 02/27/23 History cephalexin 750 mg capsule 750 mg PO TID 3 days #9 caps 02/27/23 02/27/23 Rx Allergies Allergy/AdvReac Type Severity Reaction Status Date / Time No Known Allergies Allergy Verified 02/27/23 19:52 Past Med/Surg History Social History Smoking Status: Former smoker Second Hand Exposure: No; Do You Dip or Chew Tobacco: No; Hx Alcohol Use: No Hx Substance Use: No Preferred Language: Divehi Communication Ability: Effective Equipment Operator Wage Hand Required: No Beliefs That Will Affect Care: None Current Living Situation: Family Current Living Situation Comment: lives with granddaughter, Beth Orellana Feels Safe at Home: Yes Assistive Devices: Denture - Upper, Glasses and Walker Physical Exam Vital Signs Vital Signs - 24 hr 02/27/23 19:22 02/27/23 20:02 02/27/23 22:07 Temperature 37.0 C Temperature Source Oral Pulse Rate 80 Pulse Rate [Apical] 80 82 Respiratory Rate 20 19 17 Blood Pressure 152/74 H Blood Pressure [Right Arm] 121/68 119/67 Blood Pressure Mean 100 Blood Pressure Mean [Right Arm] 85 84 Pulse Oximetry 100 96 94 Oxygen Delivery Method Room Air Room Air Room Air Sepsis Recent Fever Within 48 Hours No Sepsis New/Unexplained Change in Mental Status N/A Sepsis Action Taken by Nursing No Action Required 02/27/23 22:23 Temperature Temperature Source Pulse Rate Pulse Rate [Apical] Respiratory Rate Blood Pressure Blood Pressure [Right Arm] Blood Pressure Mean Blood Pressure Mean [Right Arm] Pulse Oximetry Oxygen Delivery Method Room Air Sepsis Recent Fever Within 48 Hours Sepsis New/Unexplained Change in Mental Status Sepsis Action Taken by Nursing Physical Exam GENERAL: oriented to person, place, and time. appears well-developed and well- nourished. HENT: Exam performed. - Head: Normocephalic and atraumatic. EYES: Conjunctivae and EOM are normal. Right eye exhibits no discharge. Left eye exhibits no discharge. No scleral icterus. NECK: Normal range of motion. Neck supple. No JVD present. No C-spine tenderness. CV: Normal rate, regular rhythm, normal heart sounds and intact distal pulses. There is no peripheral edema. Palpable radial pulses bue. PULM/CHEST: Effort normal and breath sounds normal. No respiratory distress. No stridor. no wheezes. no rales. ABD: The abdomen is soft. Obese. There is no tenderness. NEURO: Motor and sensation grossly intact. SKIN: Skin is warm and dry. He is not diaphoretic. PSYCH: normal mood and affect. Behavior is normal. Judgment and thought content normal. Course Course 193: The patient was evaluated in room A2. A complete history and physical exam was performed Administered Medications Lactated Ringer's (Lr) 1,000 mls @ 75 mls/hr IV .[id number] ONE Stop: 02/28/23 10:44 Last Admin: 02/27/23 21:31 Dose: 75 mls/hr Documented By: Medical Decision Making Laboratory Data 02/27/23 20:21 02/27/23 20:21 Lab Results 05/28/23 05/28/23 05/28/23 Range/Units 20:21 20:21 20:21 WBC 6.91 (4.8-10.8) K/ul RBC 3.77 L (4.20-5.40) M/uL Hgb 12.3 (12.0-16.0) g/dl Hct 37.9 (37.0-47.0) % MCV 100.5 H (80.0-100.0) fL MCH 32.6 (25.0-34.0) pg MCHC 32.5 (32.0-36.0) g/dL RDW Std Deviation 48.6 H (36.4-46.3) fL RDW Coeff of Yoni 13.2 (11.5-14.5) % Plt Count 226 (130-400) K/uL MPV 10.3 (9.4-12.4) fL Immature Gran % (Auto) 0.4 % Neut % (Auto) 59.2 % Lymph % (Auto) 30.4 % Gage % (Auto) 6.9 % Eos % (Auto) 2.2 % Baso % (Auto) 0.9 % Neut # (Auto) 4.09 (1.40-6.50) K/uL Lymph # (Auto) 2.10 (1.2-3.4) K/uL Gage # (Auto) 0.48 (0.11-0.59) K/uL Eos # (Auto) 0.15 (0-0.50) K/uL Baso # (Auto) 0.06 (0-0.2) K/uL Immature Gran # (Auto) 0.03 (0.01-0.20) K/uL Sodium 140 (136-145) mmol/L Potassium 4.1 (3.5-5.1) mmol/L Chloride 106 (98-107) mmol/L Carbon Dioxide 28 (21-32) mmol/L Anion Gap 6 (3-11) BUN 29 H (6-23) mg/dl Creatinine 0.99 (0.6-1.2) mg/dl Est Cr Clr Drug Dosing Not Reportable Est GFR ( Amer) 66.4 ml/min Est GFR (Non-Af Amer) 57.3 ml/min BUN/Creatinine Ratio 29.3 H (10-20) Glucose 122 H (70-99(Fasting)) mg/dl Lactate 1.1 (0.4-2.0) mmol/L Calcium 9.4 (8.6-10.3) mg/dl Magnesium 1.9 (1.7-2.4) mg/dl MDM Narrative External medical records were reviewed. Patient was discharged today by the [facility] hospitalist team. The discharge packet was printed and 1918. They were admitted for generalized weakness. The patient was discharged from the hospital and on her way out of the hospital after being discharged with try to get into her vehicle when she felt very very weak. She states she felt like her knees were about to give out. She denies falling. She denies any new pain. Contacted the [facility] hospitalist team to readmit the patient. Discussed with Dr. Liu who will evaluate the patient. Impression & Plan Generalized weakness Discharge Plan Visit Data Chief Complaint: Illness ED Provider: Richard Ashford Discharge Problem: Generalized weakness Patient Disposition: Admitted As Inpatient Discharge Instructions Interventions: ED Discharge Assessment Last Done: 02/27/23 22:23 Forms Stand Alone Forms: [facility] Prescriptions Prescriptions: No Action multivitamin Tablet 1 tab PO DAILY atorvastatin 20 mg tablet 20 mg PO DAILY lisinopril 20 mg tablet 20 mg PO QAM sertraline 100 mg tablet 200 mg PO QAM aspirin 81 mg Tablet,Delayed Release (Dr/Ec) 81 mg PO DAILY cyanocobalamin (vitamin B-12) 1,000 mcg/mL Solution 1,000 mcg IM MONTHLY omeprazole 20 mg capsule,delayed release(DR/EC) 20 mg PO DAILYBB levothyroxine 112 mcg tablet 112 mcg PO DAILYBB bupropion HCl 150 mg tablet extended release 24 hr 150 mg PO QAM pregabalin 25 mg capsule 25 mg PO TID cephalexin 750 mg capsule 750 mg PO TID 3 Days Qty: 9 0RF Rx Instructions: STARTED 02/27/23 FOR 3 DAYS. Referrals Referrals: PCP,NO [Primary Care Provider] -
[2023-02-27 20:37] LABS: Basophils # (auto) 0.06 K/uL (0-0.2); Basophils % (auto) 0.9 %; Eosinophils # (auto) 0.15 K/uL (0-0.50); Eosinophils % (auto) 2.2 %; Hematocrit (blood only) 37.9 % (37.0-47.0); Hemoglobin 12.3 g/dl (12.0-16.0); Immature Granulocytes # (auto) 0.03 K/uL (0.01-0.20); Immature Granulocytes % (auto) 0.4 %; Lymphocytes % (auto) 30.4 %; Mean Corpuscular Hemoglobin 32.6 pg (25.0-34.0); Mean Corpuscular Hgb Conc 32.5 g/dL (32.0-36.0); Mean Corpuscular Volume 100.5 fL (80.0-100.0); Mean Platelet Volume 10.3 fL (9.4-12.4); Monocytes # (auto) 0.48 K/uL (0.11-0.59); Monocytes % (auto) 6.9 %; Neutrophils # (auto) 4.09 K/uL (1.40-6.50); Neutrophils % (auto) 59.2 %; Platelet Count 226 K/uL (130-400); RDW Coefficient of Variation 13.2 % (11.5-14.5); RDW Standard Deviation 48.6 fL (36.4-46.3); Red Blood Count 3.77 M/uL (4.20-5.40); White Blood Count 6.91 K/ul (4.8-10.8)
[2023-02-27 20:51] LABS: Anion Gap 6 (3-11); BUN Creatinine Ratio 29.3 (10-20); Blood Urea Nitrogen 29 mg/dl (6-23); Calcium 9.4 mg/dl (8.6-10.3); Carbon Dioxide 28 mmol/L (21-32); Chloride 106 mmol/L (98-107); Est GFR (African American) 66.4 ml/min; Est GFR (Non-African American) 57.3 ml/min; Glucose 122 mg/dl (70-99(Fasting)); Magnesium 1.9 mg/dl (1.7-2.4); Potassium 4.1 mmol/L (3.5-5.1); Sodium 140 mmol/L (136-145)
[2023-02-27] MEDS ORDERED: LACTATED RINGER'S 1,000 ML IV ONE (21:25)
--- NOTE | 2023-02-27 21:25 | History & Physical Report ---
Date of Service February 27, 2023 Assessment & Plan (1) UTI (urinary tract infection): Plan: Complicated UTI Patient to complete oral cephalosporin course. Weakness/ambulatory dysfunction/deconditioning hypertension, stable hyperlipidemia, on statin Rx hypothyroidism, euthyroid as of recent inpatient TSH mood disorder, stable past tobacco abuse GMF Complete Keflex course PT OT eval Social service re: discharge planning/possible rehab placement DVT prophylaxis. Lovenox subcu Full code Patient requests for her daughter to be given periodic updates. Ms. Lena Moreno, contact #[phone]. Text document was generated using Widem[employer] voice recognition software. It may contain grammatical or spelling errors. Kindly contact undersigned for clarification of any documentation item in question. History of Present Illness Chief Complaint: Weakness, left leg gave out Primary Care Provider: Dr. Sullivan from [facility] History obtained from patient and records. Medical history significant for hypertension, hyperlipidemia, hypothyroidism, mood disorder, chronic back pain, migraine, past tobacco abuse. Recent confinement February 25-2022 for fall and E. coli UTI. Patient discharged 2 hours ago on oral cephalosporin antibiotic course for UTI and home PT arrangements. Patient right leg gave out as she was about to get into the vehicle to take her home from the hospital. Patient felt weak. Denies headache, syncope, chest pain, SOB. Usual back pain complaints. Patient directed to ER for readmission. Medical History as above Surgical History : Dental surgery, tonsillectomy/adenectomy, KAY with BSO Family History : DM, osteoarthritis Personal/Social history : Past tobacco abuse, no EtOH intake, lives with Allergies Allergy/AdvReac Type Severity Reaction Status Date / Time No Known Allergies Allergy Verified 02/27/23 19:52 Home Medications Medication Instructions Recorded Confirmed Type aspirin 81 mg tablet,delayed 81 mg PO DAILY 02/25/23 02/27/23 History release atorvastatin 20 mg tablet 20 mg PO DAILY 02/25/23 02/27/23 History bupropion HCl 150 mg 24 hr tablet, 150 mg PO QAM 02/25/23 02/27/23 History extended release cyanocobalamin (vitamin B-12) 1,000 mcg IM MONTHLY 02/25/23 02/27/23 History 1,000 mcg/mL injection solution levothyroxine 112 mcg tablet 112 mcg PO DAILYBB 02/25/23 02/27/23 History lisinopril 20 mg tablet 20 mg PO QAM 02/25/23 02/27/23 History multivitamin 1 tab PO DAILY 02/25/23 02/27/23 History omeprazole 20 mg capsule,delayed 20 mg PO DAILYBB 02/25/23 02/27/23 History release pregabalin 25 mg capsule 25 mg PO TID 02/25/23 02/27/23 History sertraline 100 mg tablet 200 mg PO QAM 02/25/23 02/27/23 History cephalexin 750 mg capsule 750 mg PO TID 3 days #9 caps 02/27/23 02/27/23 Rx Past Med/Surg History Social History Smoking Status: Former smoker Smoking End Date: 1983; Second Hand Exposure: No; Do You Dip or Chew Tobacco: No; Tobacco Cessation Education Requested by Patient: No Hx Alcohol Use: No Hx Substance Use: No Preferred Language: American Communication Ability: Effective Highway Patrol Officer Required: No Beliefs That Will Affect Care: None Current Living Situation: Family Current Living Situation Comment: lives with granddaughter Beth Pack Other Information That Helps Us Care for You: No Feels Safe at Home: Yes Safety Concerns: Feels Safe At This Time Assistive Devices: Denture - Upper, Glasses and Walker Review of Systems Review of Systems: As per HPI, all other systems reviewed and negative Physical Exam Physical Exam: GENERAL: Comfortable, pleasant, morbidly obese, no respiratory distress SKIN: Normal color, warm HEENT: Bespectacled, Mesick palpebral conjunctivae, no ptosis, dry buccal mucosa NECK : Supple, short neck, no tenderness CHEST : CTA, no tenderness HEART : RRR, no obvious murmurs ABDOMEN: Some distention, nontender EXTREMITIES : Minimal LE swelling, no LE tenderness, no other conspicuous deformities noted NEUROLOGIC : Coherent, no facial asymmetry, gait and stance not assessed Results & Data Results & Data Vital Signs (Past 12 Hours) Vital Signs Temp Pulse Pulse Resp BP BP Pulse Ox 02/27/23 20:02 80 19 121/68 96 02/27/23 19:22 37.0 C 80 20 152/74 H 100 O2 Del Method 02/27/23 20:02 Room Air 02/27/23 19:22 Room Air Laboratory Results Laboratory Results WBC 6.91 K/ul (4.8-10.8) 02/27/23 20:21 RBC 3.77 M/uL (4.20-5.40) L 02/27/23 20:21 Hgb 12.3 g/dl (12.0-16.0) 02/27/23 20:21 Hct 37.9 % (37.0-47.0) 02/27/23 20:21 MCV 100.5 fL (80.0-100.0) H 02/27/23 20:21 MCH 32.6 pg (25.0-34.0) 02/27/23 20: MCHC 32.5 g/dL (32.0-36.0) 02/27/23 20: RDW Std Deviation 48.6 fL (36.4-46.3) H 02/27/23 20: RDW Coeff of Yoni 13.2 % (11.5-14.5) 02/27/23 20: Plt Count 226 K/uL (130-400) 02/27/23 20: MPV 10.3 fL (9.4-12.4) 02/27/23 20:21 Immature Gran % (Auto) 0.4 % 02/27/23 20:21 Neut % (Auto) 59.2 % 02/27/23 20:21 Lymph % (Auto) 30.4 % 02/27/23 20:21 Morton % (Auto) 6.9 % 02/27/23 20:21 Eos % (Auto) 2.2 % 02/27/23 20:21 Baso % (Auto) 0.9 % 02/27/23 20:21 Neut # (Auto) 4.09 K/uL (1.40-6.50) 02/27/23 20:21 Lymph # (Auto) 2.10 K/uL (1.2-3.4) 02/27/23 20:21 Morton # (Auto) 0.48 K/uL (0.11-0.59) 02/27/23 20:21 Eos # (Auto) 0.15 K/uL (0-0.50) 02/27/23 20:21 Baso # (Auto) 0.06 K/uL (0-0.2) 02/27/23 20:21 Immature Gran # (Auto) 0.03 K/uL (0.01-0.20) 02/27/23 20:21 Sodium 140 mmol/L (136-145) 02/27/23 20:21 Potassium 4.1 mmol/L (3.5-5.1) 02/27/23 20:21 Chloride 106 mmol/L (98-107) 02/27/23 20:21 Carbon Dioxide 28 mmol/L (21-32) 02/27/23 20:21 Anion Gap 6 (3-11) 02/27/23 20:21 BUN 29 mg/dl (6-23) H 02/27/23 20:21 Creatinine 0.99 mg/dl (0.6-1.2) 02/27/23 20:21 Est Cr Clr Drug Dosing Not Reportable 02/27/23 20:21 Est GFR ( Amer) 66.4 ml/min 02/27/23 20:21 Est GFR (Non-Af Amer) 57.3 ml/min 02/27/23 20:21 BUN/Creatinine Ratio 29.3 (10-20) H 02/27/23 20:21 Glucose 122 mg/dl (70-99(Fasting)) H 02/27/23 20:21 Lactate 1.1 mmol/L (0.4-2.0) 02/27/23 20:21 Calcium 9.4 mg/dl (8.6-10.3) 02/27/23 20:21 Magnesium 1.9 mg/dl (1.7-2.4) 02/27/23 20:21
[2023-02-27] MEDS ORDERED: PROMETHAZINE HCL 12.5 MG in SODIUM CHLORIDE 0.9% 50 ML IV PRN (23:01)
[2023-02-27] MEDS: PREGABALIN 25 MG CAP PO SCH (23:28)
[2023-02-27] MEDS ORDERED: Patient's HEIGHT &/or WEIGHT Needed SCH (23:30)
[2023-02-27] MEDS: oxyCODONE HCL IR 5 MG TAB (IMMEDIATE RELEASE) PO PRN (23:45)
[2023-02-28] MEDS: ACETAMINOPHEN 325 MG TAB PO PRN ×2 (05:10→23:26)
[2023-02-28] MEDS: LEVOTHYROXINE SODIUM 112 MCG TABLET PO SCH (06:04)
[2023-02-28] MEDS: PANTOprazole 40 MG TAB PO SCH (06:04)
[2023-02-28 06:53] LABS: Basophils # (auto) 0.04 K/uL (0-0.2); Basophils % (auto) 0.8 %; Eosinophils # (auto) 0.13 K/uL (0-0.50); Eosinophils % (auto) 2.5 %; Hemoglobin 11.6 g/dl (12.0-16.0); Immature Granulocytes # (auto) 0.01 K/uL (0.01-0.20); Immature Granulocytes % (auto) 0.2 %; Lymphocytes # (auto) 1.87 K/uL (1.2-3.4); Lymphocytes % (auto) 36.1 %; Mean Corpuscular Hemoglobin 32.4 pg (25.0-34.0); Mean Corpuscular Hgb Conc 33.1 g/dL (32.0-36.0); Mean Corpuscular Volume 97.8 fL (80.0-100.0); Mean Platelet Volume 10.1 fL (9.4-12.4); Monocytes # (auto) 0.44 K/uL (0.11-0.59); Monocytes % (auto) 8.5 %; Neutrophils # (auto) 2.69 K/uL (1.40-6.50); Neutrophils % (auto) 51.9 %; Platelet Count 218 K/uL (130-400); RDW Coefficient of Variation 12.9 % (11.5-14.5); RDW Standard Deviation 46.3 fL (36.4-46.3); Red Blood Count 3.58 M/uL (4.20-5.40); White Blood Count 5.18 K/ul (4.8-10.8)
[2023-02-28 07:11] LABS: BUN Creatinine Ratio 34.8 (10-20); Calcium 9.1 mg/dl (8.6-10.3); Creatinine Clr Calc Pharmacy 77.9 ml/min; Est GFR (African American) 101.5 ml/min; Est GFR (Non-African American) 87.6 ml/min; Potassium 4.2 mmol/L (3.5-5.1)
[2023-02-28] MEDS: oxyCODONE HCL IR 5 MG TAB (IMMEDIATE RELEASE) PO PRN ×3 (07:37→20:03)
[2023-02-28] MEDS: ASPIRIN 81 MG ECTAB PO SCH (09:17)
[2023-02-28] MEDS: MULTIVITAMIN TAB PO SCH (09:18)
[2023-02-28] MEDS: buPROPion XL 150 MG TABCR PO SCH (09:18)
[2023-02-28] MEDS: SERTRALINE HCL 100 MG TABLET PO SCH (09:18)
[2023-02-28] MEDS: lisinopril 20 MG TAB PO SCH (09:18)
[2023-02-28] MEDS: ATORVASTATIN 20 MG TAB PO SCH (09:18)
[2023-02-28] MEDS: cephALEXin 250 MG CAP PO SCH ×3 (09:18→20:02)
[2023-02-28] MEDS: PREGABALIN 25 MG CAP PO SCH ×3 (09:18→20:02)
[2023-02-28] MEDS: ENOXAPARIN INJ 40 MG/0.4 ML SYR SQ SCH (09:18)
--- NOTE | 2023-02-28 15:37 | Hospitalist Progress Note ---
Date of Service February 28, 2023 Assessment & Plan (1) Generalized weakness: Plan (1) Generalized weakness/ambulatory dysfunction/deconditioning PT/OT eval, likely will need placement. (2) Fall: Related to her OA. PT/OT. (3) UTI (urinary tract infection): -continue keflex to complete the course. Chronic issues: resume home meds as able. HTN- Lisinopril 20mg Depression- continue bupropion, sertraline Hypothyroidism- continue levothyroxine 112mcg Vitamin B12 deficiency- gets monthly injections Morbid Obesity- BMI 44, ongoing weight loss counseling OA- reports she needs a right knee replacement. Would benefit from PT, we ight loss. Continue pregabalin DVT ppx: SQ lovenox Daughter Ms. Lena Moreno, contact #[phone]. Admission and Anticipated Discharge Date Admission Date: February 27, 2023 Subjective Patient seen and examined at bedside as a follow-up of complicated UTI and weakness. Patient was lying in bed, on room air, NAD, reports bilateral knee pain when walking, no pain while lying down, denies headache or dizziness or chest pain. Reports eating okay and moving bowels okay. Physical Exam Physical Exam: Physical Exam: Morbidly obese, n on toxic, pleasant Respiratory: Breathing comfort ably on room air, no accessory muscl e use Cardiovascular:I regular rate and rhythm, no murmurs /rubs Gastrointestinal ( Abdomen): soft, non tender, obese Musculoskeletal: no edema, no cyan osis or clubbing Neurologic: awake, alert, spo ntaneously moving extremities Results & Data Results & Data Vital Signs (Past 12 Hours) Vital Signs Temp Pulse Resp BP Pulse Ox O2 Del Method 02/28/23 15:05 36.6 C 82 16 123/69 94 Room Air 02/28/23 10:27 Room Air 02/28/23 07:51 36.7 C 76 16 137/81 94 Room Air
[2023-03-01] MEDS: oxyCODONE HCL IR 5 MG TAB (IMMEDIATE RELEASE) PO PRN ×3 (04:51→19:12)
[2023-03-01] MEDS: LEVOTHYROXINE SODIUM 112 MCG TABLET PO SCH (06:23)
[2023-03-01] MEDS: PANTOprazole 40 MG TAB PO SCH (06:23)
[2023-03-01] MEDS: ACETAMINOPHEN 325 MG TAB PO PRN (07:53)
[2023-03-01] MEDS: cephALEXin 250 MG CAP PO SCH ×3 (07:55→20:00)
[2023-03-01] MEDS: SERTRALINE HCL 100 MG TABLET PO SCH (07:55)
[2023-03-01] MEDS: MULTIVITAMIN TAB PO SCH (07:55)
[2023-03-01] MEDS: lisinopril 20 MG TAB PO SCH (07:56)
[2023-03-01] MEDS: ASPIRIN 81 MG ECTAB PO SCH (07:56)
[2023-03-01] MEDS: ENOXAPARIN INJ 40 MG/0.4 ML SYR SQ SCH (07:56)
[2023-03-01] MEDS: buPROPion XL 150 MG TABCR PO SCH (07:56)
[2023-03-01] MEDS: ATORVASTATIN 20 MG TAB PO SCH (07:56)
[2023-03-01] MEDS: PREGABALIN 25 MG CAP PO SCH ×3 (07:58→20:00)
--- NOTE | 2023-03-01 16:28 | Hospitalist Progress Note ---
Date of Service March 01, 2023 Assessment & Plan (1) Generalized weakness: Plan (1) Generalized weakness/ambulatory dysfunction/deconditioning PT/OT eval, likely will need placement. (2) Fall: Related to her OA. PT/OT. (3) UTI (urinary tract infection): -continue keflex to complete the course. Chronic issues: resume home meds as able. HTN- Lisinopril 20mg Depression- continue bupropion, sertraline Hypothyroidism- continue levothyroxine 112mcg Vitamin B12 deficiency- gets monthly injections Morbid Obesity- BMI 44, ongoing weight loss counseling OA- reports she needs a right knee replacement. Would benefit from PT, we ight loss. Continue pregabalin DVT ppx: SQ lovenox Daughter Ms. Lena Moreno, contact #[phone]. Awaiting placement. Admission and Anticipated Discharge Date Admission Date: February 27, 2023 Subjective Patient seen and examined at bedside as a follow-up of complicated UTI and weakness. Patient was lying in bed, on room air, NAD, reports bilateral knee pain when walking, no pain while lying down, denies headache or dizziness or chest pain. Reports eating okay and moving bowels okay. Physical Exam Physical Exam: Physical Exam: Morbidly obese, n on toxic, pleasant Respiratory: Breathing comfort ably on room air, no accessory muscl e use Cardiovascular:I regular rate and rhythm, no murmurs /rubs Gastrointestinal ( Abdomen): soft, non tender, obese Musculoskeletal: no edema, no cyan osis or clubbing Neurologic: awake, alert, spo ntaneously moving extremities Results & Data Results & Data Vital Signs (Past 12 Hours) Vital Signs Temp Pulse Resp BP Pulse Ox O2 Del Method 03/01/23 14:36 36.6 C 78 16 118/66 94 Room Air 03/01/23 08:05 Room Air 03/01/23 07:04 37.0 C 77 16 111/75 94 Room Air
[2023-03-02] MEDS: ACETAMINOPHEN 325 MG TAB PO PRN ×4 (00:19→20:41)
[2023-03-02] MEDS: oxyCODONE HCL IR 5 MG TAB (IMMEDIATE RELEASE) PO PRN ×4 (05:18→20:41)
[2023-03-02] MEDS: LEVOTHYROXINE SODIUM 112 MCG TABLET PO SCH (05:30)
[2023-03-02] MEDS: PANTOprazole 40 MG TAB PO SCH (05:30)
[2023-03-02] MEDS: buPROPion XL 150 MG TABCR PO SCH (08:08)
[2023-03-02] MEDS: ASPIRIN 81 MG ECTAB PO SCH (08:08)
[2023-03-02] MEDS: ATORVASTATIN 20 MG TAB PO SCH (08:09)
[2023-03-02] MEDS: SERTRALINE HCL 100 MG TABLET PO SCH (08:10)
[2023-03-02] MEDS: lisinopril 20 MG TAB PO SCH (08:11)
[2023-03-02] MEDS: MULTIVITAMIN TAB PO SCH (08:12)
[2023-03-02] MEDS: cephALEXin 250 MG CAP PO SCH ×3 (08:12→20:34)
[2023-03-02] MEDS: ENOXAPARIN INJ 40 MG/0.4 ML SYR SQ SCH (08:13)
[2023-03-02] MEDS: PREGABALIN 25 MG CAP PO SCH ×3 (08:15→20:34)
--- NOTE | 2023-03-02 17:25 | Hospitalist Progress Note ---
Date of Service March 02, 2023 Assessment & Plan (1) Generalized weakness: Plan (1) Generalized weakness/ambulatory dysfunction/deconditioning PT/OT eval, likely will need placement. (2) Fall: Related to her OA. PT/OT. (3) UTI (urinary tract infection): -continue keflex to complete the course. Chronic issues: resume home meds as able. HTN- Lisinopril 20mg Depression- continue bupropion, sertraline Hypothyroidism- continue levothyroxine 112mcg Vitamin B12 deficiency- gets monthly injections Morbid Obesity- BMI 44, ongoing weight loss counseling OA- reports she needs a right knee replacement. Would benefit from PT, we ight loss. Continue pregabalin DVT ppx: SQ lovenox Daughter Ms. Lena Moreno, contact #[phone]. Awaiting placement. Admission and Anticipated Discharge Date Admission Date: February 27, 2023 Subjective Patient seen and examined at bedside as a follow-up of complicated UTI and weakness. Patient was lying in bed, on room air, NAD, reports bilateral knee pain when walking, no pain while lying down, denies headache or dizziness or chest pain. Reports eating okay and moving bowels okay. Physical Exam Physical Exam: Physical Exam: Morbidly obese, n on toxic, pleasant Respiratory: Breathing comfort ably on room air, no accessory muscl e use Cardiovascular:I regular rate and rhythm, no murmurs /rubs Gastrointestinal ( Abdomen): soft, non tender, obese Musculoskeletal: no edema, no cyan osis or clubbing Neurologic: awake, alert, spo ntaneously moving extremities Results & Data Results & Data Vital Signs (Past 12 Hours) Vital Signs Temp Pulse Resp BP Pulse Ox O2 Del Method 03/02/23 15:24 36.7 C 81 16 110/73 94 Room Air 03/02/23 07:54 94 Room Air 03/02/23 07:51 36.9 C 77 16 108/68 92 Room Air
[2023-03-03] MEDS: LEVOTHYROXINE SODIUM 112 MCG TABLET PO SCH (06:00)
[2023-03-03] MEDS: PANTOprazole 40 MG TAB PO SCH (06:00)
[2023-03-03] MEDS: oxyCODONE HCL IR 5 MG TAB (IMMEDIATE RELEASE) PO PRN ×2 (06:03→12:57)
[2023-03-03] MEDS: ACETAMINOPHEN 325 MG TAB PO PRN ×2 (06:04→12:57)
[2023-03-03] MEDS: ASPIRIN 81 MG ECTAB PO SCH (08:08)
[2023-03-03] MEDS: buPROPion XL 150 MG TABCR PO SCH (08:08)
[2023-03-03] MEDS: MULTIVITAMIN TAB PO SCH (08:08)
[2023-03-03] MEDS: ATORVASTATIN 20 MG TAB PO SCH (08:08)
[2023-03-03] MEDS: lisinopril 20 MG TAB PO SCH (08:08)
[2023-03-03] MEDS: SERTRALINE HCL 100 MG TABLET PO SCH (08:08)
[2023-03-03] MEDS: ENOXAPARIN INJ 40 MG/0.4 ML SYR SQ SCH (08:09)
[2023-03-03] MEDS: PREGABALIN 25 MG CAP PO SCH ×2 (08:11→14:09)
--- NOTE | 2023-03-03 13:56 | Discharge Summary ---
Date of Service March 03, 2023 Admission HPI Per Admitting Provider History obtained from patient and records. Medical history significant for hypertension, hyperlipidemia, hypothyroidism, mood disorder, chronic back pain, migraine, past tobacco abuse. Recent confinement February 25-2022 for fall and E. coli UTI. Patient discharged 2 hours ago on oral cephalosporin antibiotic course for UTI and home PT arrangements. Patient right leg gave out as she was about to get into the vehicle to take her home from the hospital. Patient felt weak. Denies headache, syncope, chest pain, SOB. Usual back pain complaints. Patient directed to ER for readmission. Medical History as above Surgical History : Dental surgery, tonsillectomy/adenectomy, KAY with BSO Family History : DM, osteoarthritis Personal/Social history : Past tobacco abuse, no EtOH intake, lives with Admission Exam Per Admitting Provider GENERAL: Comfortable, pleasant, morbidly obese, no respiratory distress SKIN: Normal color, warm HEENT: Bespectacled, [place] palpebral conjunctivae, no ptosis, dry buccal mucosa NECK : Supple, short neck, no tenderness CHEST : CTA, no tenderness HEART : RRR, no obvious murmurs ABDOMEN: Some distention, nontender EXTREMITIES : Minimal LE swelling, no LE tenderness, no other conspicuous deformities noted NEUROLOGIC : Coherent, no facial asymmetry, gait and stance not assessed Principal Diagnosis E coli UTI Fall, Weakness Discharge Exam Physical Exam: Morbidly obese, non toxic, pleasant Respiratory: Breathing comfortably on room air, no accessory muscle use Cardiovascular: regular rate and rhythm, no murmurs/rubs Gastrointestinal (Abdomen): soft, non tender, obese Musculoskeletal: no edema, no cyanosis or clubbing Neurologic: awake, alert, spontaneously moving extremities Discharge Data Allergies Allergy/AdvReac Type Severity Reaction Status Date / Time No Known Allergies Allergy Verified 02/27/23 19:52 Consultations 02/27/23 19:38 ED Decision to Admit Stat Hospital Course (1) Generalized weakness: Plan 72-year-old female was managed for the following while in hospital: (1) Generalized weakness/ambulatory dysfunction/deconditioning PT/OT eval, on replacement. Patient to continue with her physical therapy. (2) Fall: Related to her OA. PT/OT. (3) UTI (urinary tract infection): Status post antibiotic course completion. Chronic issues: resume home meds as able. HTN- Lisinopril 20mg Depression- continue bupropion, sertraline Hypothyroidism- continue levothyroxine 112mcg Vitamin B12 deficiency- gets monthly injections Morbid Obesity- BMI 44, ongoing weight loss counseling OA- reports she needs a right knee replacement. Would benefit from PT, weight loss. Continue pregabalin. Can use [id number] Tylenol as needed for pain. Daughter Ms. Lena Moreno, contact #[phone]. Patient being discharged to custodial with following instruction at the point of discharge: Follow-up with your primary care physician within a week time and likely you will need labs CBC/CMP/magnesium/phosphorus. You were admitted to the hospital for weakness found to have a urinary tract infection. PT/OT evaled, recommended SNF. You will continue with your PT/OT. You completed the course of antibiotic for your UTI while in hospital. You report right knee "gives out" because of severe arthritis. You should follow up with your doctor to discuss knee replacement You were noted to have fluid collection in your left calf which may be due to an old injury. Please follow up with your family doctor to monitor. You do NOT have blood clot in your legs For arthritis, it is recommended you use acetaminophen (tylenol) as needed. Your naproxen was discontinued. Home Health Attestation I certify that this patient is under my care and that I, or a physicians market research assistant working with me, had a face to-face encounter that meets the home health [id number] encounter requirements with this patient. The encounter with the patient was in whole, or in part, for the following medical condition, which is the primary reason for home health care (list medical condition): I certify that, based on my findings, the following services are medically necessary home health services: My clinical findings support the need for the above services because: Further, I certify that my clinical findings support that this patient is homebound (i.e. absences from home require considerable and taxing effort and are for medical reasons or yazdanism services or infrequently or of short duration when for other reasons) because: Certification for Home Health Services: Based on the above findings, I certify that this patient is confined to the home and needs intermittent group home care, physical therapy and/or speech therapy or continues to need occupational therapy. The patient is under my care, and I have initiated the establishment of the plan of care. This patient will be followed by a physician who will periodically review the plan of care. Total Time Total Time Spent Total Time Spent (In Minutes): 45 Discharge Plan Discharge Items Patient Disposition: Transfer Nursing Home Fac Reason For Visit: COMP UTI Discharge Diagnosis: E coli UTI Fall, Weakness Activity: As commented below Activity Comment: continue with physical therapy as OP. Non-emergency contact: Primary Care Provider Call non-emergency contact if: you have any medication questions Follow-up/Referrals: PCP,NO [Primary Care Provider] - Diet: Heart Healthy Addtl Attending Provider Instructions: Follow-up with your primary care physician within a week time and likely you will need labs CBC/CMP/magnesium/phosphorus. You were admitted to the hospital for weakness found to have a urinary tract infection. PT/OT evaled, recommended SNF. You will continue with your PT/OT. You completed the course of antibiotic for your UTI while in hospital. You report right knee "gives out" because of severe arthritis. You should follow up with your doctor to discuss knee replacement You were noted to have fluid collection in your left calf which may be due to an old injury. Please follow up with your family doctor to monitor. You do NOT have blood clot in your legs For arthritis, it is recommended you use acetaminophen (tylenol) as needed. Your naproxen was discontinued. Pending Studies at Discharge: No Stand-Alone Forms: My [facility] Skilled Items Patient informed of condition?: Yes DNR: No Discharge Level of Care: Skilled Communicable Disease: No Discharge Prognosis: Stable Lines: None Urinary Catheter: No Medications and DC Order Prescriptions: New acetaminophen 325 mg Tablet 650 mg PO Q6H PRN (Reason: mild to moderate pain) Qty: 60 0RF oxycodone 5 mg Tablet 5 mg PO Q8H PRN (Reason: severe pain (scale score 7-10)) 3 Days Qty: 9 0RF Continued multivitamin Tablet 1 tab PO DAILY atorvastatin 20 mg tablet 20 mg PO DAILY lisinopril 20 mg tablet 20 mg PO QAM sertraline 100 mg tablet 200 mg PO QAM aspirin 81 mg Tablet,Delayed Release (Dr/Ec) 81 mg PO DAILY cyanocobalamin (vitamin B-12) 1,000 mcg/mL Solution 1,000 mcg IM MONTHLY omeprazole 20 mg capsule,delayed release(DR/EC) 20 mg PO DAILYBB levothyroxine 112 mcg tablet 112 mcg PO DAILYBB bupropion HCl 150 mg tablet extended release 24 hr 150 mg PO QAM pregabalin 25 mg capsule 25 mg PO TID cephalexin 750 mg capsule 750 mg PO TID 3 Days Qty: 9 0RF Rx Instructions: STARTED 02/27/23 FOR 3 DAYS. Discharge Orders: Discharge Order (Routine); Ordered 03/03/23 Ordered By: Chana Barreto Admission Data Admit Date/Time: 02/27/23 21:27 Attending Provider: Chana Barreto Admit Provider: Good Mccullough Primary Care Provider: PCP,NO Other Providers: Good Mccullough ; Yolanda Vergara Spray
== END 2023-03-03 15:25 | DRG 690 ==
LOC: ED 19:18 → 3N 21:27